=== PATIENT | male | born 1980 | race Hispanic/Latino ===

== ENCOUNTER 2025-03-09 16:48 | Emergency (ER) | payer OTHER ==
[~2025-03-09] VITALS: Ht 172.7 cm; Wt 108.5 kg
[2025-03-09 18:21] LABS: BASOPHILS 0.4 % (0.2-1.2); EOSINOPHILS 1.2 % (0.8-7.0); HEMATOCRIT 46.9 % (40.1-51.0); LYMPHOCYTES 33.4 % (21.8-53.1); MCH 32.7 PG (25.7-32.2); MCHC 34.1 g/dL (32.3-36.5); MCV 95.9 fL (79.0-92.2); MONOCYTES 7.7 % (5.3-12.2); NEUTROPHILS 57.2 % (34.0-67.9); PLATELET COUNT 284 K/uL (163-337); RBC 4.89 M/uL (4.63-6.08)
[2025-03-09 18:31] LABS: ALBUMIN 4.3 g/dL (3.4-5.0); ALBUMIN/GLOBULIN RATIO 1.08 (1.1-2.4); ANION GAP 9.8 (7-21); BILIRUBIN, TOTAL 0.5 mg/dL (0.2-1.0); BUN/CREATININE RATIO 12.71 (6.0-28.6); CALCIUM 10.4 mg/dL (8.5-10.1); CREATININE, SERUM 1.18 mg/dL (0.70-1.30); POTASSIUM 3.8 mmol/L (3.5-5.1); PROTEIN, TOTAL 8.3 g/dL (6.4-8.2)
[2025-03-09 18:43] LABS: BILIRUBIN, URINE NEGATIVE (negative); BLOOD/HGB, URINE NEGATIVE (Negative); KETONE, URINE SMALL (Negative); LEUK ESTERASE, URINE NEGATIVE (negative); NITRITE, URINE NEGATIVE (negative)
[2025-03-09] MEDS ORDERED: PROTONIX40 MG PO (20:56)
[2025-03-09] MEDS ORDERED: PANTOPRAZOLE SODIUM 40 MG TABEC PO ONE (21:00)
[2025-03-09 21:16] VITALS: BP 130/79
== END 2025-03-09 21:18 | disposition home or self-care (01) ==
LOC: ED 16:48
PROVIDERS: Emergency Medicine
DX: R10.13 Epigastric pain (principal)
CPT/HCPCS: 36415; 76705; 80053; 81003; 83690; 83735; 85025; 99284-25; A9270